=== PATIENT | male | born 1990 | race Hispanic/Latino ===

== ENCOUNTER 2018-10-27 18:44 | Emergency (ER) | payer OTHER, SELFPAY ==
[2018-10-27] MEDS ORDERED: Ketorolac Tromethamine 60 MG/2 ML VIAL ONE (19:37)
[2018-10-27] MEDS ORDERED: Dexamethasone 4 MG TAB ONE (19:37)
--- NOTE | 2018-10-27 20:13 | RAD ---
TWO VIEWS OF THE CHEST 10/27/18 COMPARISON: None. HISTORY: Fever, sore throat. FINDINGS: There is no pneumothorax, pleural fluid, focal consolidation, or alveolar edema. Heart and mediastina l contours are unremarkable. IMPRESSION: No acute findings. POS: [facility]
== END 2018-10-27 20:52 | disposition home or self-care (01) ==
LOC: ERS 18:44
DX: J20.9 Acute bronchitis, unspecified (principal); F17.210 Nicotine dependence, cigarettes, uncomplicated
CPT/HCPCS: 71046; 87081; 87430; 87804; 96372; J1885; J8540

== ENCOUNTER 2019-06-14 13:25 | Emergency (ER) | payer SELFPAY | END 2019-06-14 15:23 | disposition home or self-care (01) | LOC: ERS 13:25 | DX: M77.01 Medial epicondylitis, right elbow (principal); F17.290 Nicotine dependence, other tobacco product, uncomplicated | CPT/HCPCS: 99281 ==

== ENCOUNTER 2020-11-01 18:45 | Emergency (ER) | payer SELFPAY ==
--- NOTE | 2020-11-01 20:20 | RAD ---
RADIOGRAPH CERVICAL SPINE 3 VIEWS: 11/01/20 HISTORY: 30-year-old male with cervicalgia. COMPARISON: None. FINDINGS: There is loss of lordosis and reversal of curvature, kyphosis. Vertebral body heights and disc spaces are maintained. Small end plate marginal osteophytes protruding into the prevertebral space at C4-5 and C6-7. No subl uxation. No high grade facet DJD. Bilateral atlanto-axial joints appear normal. No prevertebral soft tissue swelling. IMPRESSION: 1. Reversal of curvature, which could be due to muscle spasm. 2. Mild degenerative disc disease at C4-5 and C6-7. JN [] POS: [facility]
== END 2020-11-01 20:26 | disposition home or self-care (01) ==
LOC: ERS 18:45
DX: L03.811 Cellulitis of head [any part, except face] (principal); R59.0 Localized enlarged lymph nodes; F17.210 Nicotine dependence, cigarettes, uncomplicated
CPT/HCPCS: 72040